=== PATIENT | male | born 1985 | race Caucasian/White ===

== ENCOUNTER 2017-09-22 17:21 | Emergency (ER) | payer SELFPAY ==
[~2017-09-22] VITALS: Ht 175.3 cm; Wt 72.0 kg
[~2017-09-22 17:21] MED LIST: SUBO8MIS SL
[2017-09-22 17:29] VITALS: BP 137/63; PULSE 90; RESP 16; TEMP 97.4; O2SAT 100
--- NOTE | 2017-09-22 17:39 | PD ---
HPI Chief Complaint: Injury Time Seen by Provider: 17:31 Travel History International Travel<30 days: No Contact w/Intl Traveler<30days: No Traveled to known affect area: No History of Present Illness HPI Patient comes in requesting a tetanus shot after having a puncture wound occurred this morning while at work. Patient states that he accidentally stepped on a nail while work that went through his shoe stabbing him and his right great toe. Patient reports cleaning this and applying a bandage and then continued his work day. Patient states his tetanus shot is not up-to-date. Patient reports minimal tenderness around site of puncture wound to palpation. He denies any radiation of the pain. Not touching it makes the pain better. PFSH Past Medical History Medical History: Denies Significant Hx Blood Disorders: No Cancer: No Cardiovascular Problems: No Diabetes: No Diminished Hearing: No Endocrine: No Gastrointestinal Disorders: No Genitourinary: No Musculoskeletal: No Neurologic: No Reproductive: No Respiratory: No Tetanus Vaccination: < 5 Years Past Surgical History Abdominal Surgery: No AICD: No Appendectomy: Yes (AT AGE OF 2) Arteriovenous Shunt: No Cardiac Surgery: No Ear Surgery: No Endocrine Surgery: No Eye Surgery: No Genitourinary Surgery: No Gynecologic Surgery: No Insulin Pump: No Neurologic Surgery: No Oral Surgery: No Pacemaker: No Thoracic Surgery: No Other Surgery: No Social History Alcohol Use: No (2 RUM AND COKES A MONTH) Tobacco Use: No Substance Use: Yes (hx of THC,ROXYCETS) Allergies-Medications (Allergen,Severity, Reaction): Coded Allergies: No Known Allergies (Verified Adverse Reaction, Unknown, 09/22/17) Reported Meds & Prescriptions Reported Meds & Active Scripts Active Cipro (Ciprofloxacin HCl) 500 Mg Tab 500 Mg PO BID 3 Days Review of Systems General / Constitutional: No: Fever Eyes: No: Visual changes HENT: No: Headaches Cardiovascular: No: Chest Pain or Discomfort Respiratory: No: Shortness of Breath Gastrointestinal: No: Abdominal Pain Genitourinary: No: Dysuria Musculoskeletal: No: Pain Skin: No Rash Neurologic: No: Weakness Psychiatric: No: Depression Endocrine: No: Polydipsia Hematologic/Lymphatic: No: Easy Bruising Physical Exam Narrative GENERAL: Well-developed, well nourished, in no acute distress, and non-ill appearing. SKIN: Tiny superficial puncture wound noted over the dorsal aspect of the right great toe. There is no drainage or erythematous. Is mildly tender to palpation. There is no crepitus. There is no foreign body noted. HEAD: Atraumatic. Normocephalic. EYES: Pupils equal and round. EOMI. No scleral icterus. No injection or drainage. ENT: No nasal bleeding or discharge. Mucous membranes pink and moist. NECK: Trachea midline. Supple. No nuclear rigidity. RESPIRATORY: No accessory muscle use. No respiratory distress. MUSCULOSKELETAL: No obvious deformities. No clubbing. No cyanosis. No edema. Full range of motion. NEUROLOGICAL: Awake and alert. No obvious cranial nerve deficits. Motor grossly within normal limits. Normal speech. PSYCHIATRIC: Appropriate mood and affect; insight and judgment normal. Data Data Last Documented VS Vital Signs Date Time Temp Pulse Resp B/P (MAP) Pulse Ox O2 Delivery O2 Flow Rate FiO2 09/22/17 17:29 97.4 90 16 137/63 (87) 100 Orders Orders Tetanus/Diphtheria Tox Adult (Tetanus/Di (09/22/17 17:45) Wound Care (09/22/17 17:37) Ed Discharge Order (09/22/17 17:40) MDM Medical Decision Making Medical Screen Exam Complete: Yes Emergency Medical Condition: Yes Differential Diagnosis Puncture wound, retained foreign body, wound check Narrative Course The patient suffered superficial puncture wound to the right great toe. There was no evidence to suggest foreign bodies. Visual and tactile exams were unremarkable without evidence of foreign body at this time. There was no evidence of neurovascular injury. The patient had a normal distal vascular exam , and had full normal motor and sensory exams. There was also no evidence or tendon injury, with normal distal full range of motions, flexion, extension, abduction, adduction and opponens. There was no evidence of local joint space involvement at this time. The patient was irrigated and cleaned by RN. The patient was given signs and symptom warnings for infection, such as increasing pain, redness, swelling, associated heat, pus or fever. The patient was warned of possible unseen foreign body and instructed to return immediately if signs or symptoms develop. The patient was given instructions for timely follow up. The patient agreed with plan of care. Patient in no obvious distress upon re-evaluation. Patient was asked if they wanted to speak to my attending, which the patient did not wish to do at this time. Any questions/concerns in reference to patient diagnosis/condition discussed and clarified prior to patient's discharge. Reinforced sheer importance of close follow up with patient's primary physician or primary care clinic. Instructed patient to return to ED immediately, if symptoms return/ worsen. Patient showed understanding of above instructions. Further instructions and recommendations were detailed in discharge paperwork. Patient ambulated without difficulty out of ED at discharge. Diagnosis Primary Impression: Puncture wound of great toe, right Qualified Codes: S91.131A - Puncture wound without foreign body of right great toe without damage to nail, initial encounter Referrals: [facility] Patient Instructions: General Instructions, Puncture Wound (ED) Additional Instructions: Follow-up with your primary care physician in 2 days for recheck. Take all medication as prescribed. Keep wound dry and clean as possible using soap and water. Do not soak or submerge wound. Return to the emergency department if symptoms get worse. Med/Other Pt SpecificInfo: Prescription(s) given Scripts Ciprofloxacin (Cipro) 500 Mg Tab 500 MG PO BID for Infection for 3 Days, #6 TAB 0 Refills Prov: Elias Tyson MD 09/22/17 Disposition: 01 DISCHARGE HOME Condition: Stable Sai Mckeon Sep 22, 2017 17:39
[2017-09-22] MEDS ORDERED: CIPR-9 PO (17:40)
[2017-09-22] MEDS ORDERED: TETANUS/DIPHTHERIA TOXOID ADULT 0.5 ML VIAL IM ONE (17:45)
== END 2017-09-22 18:04 | disposition home or self-care (01) ==
LOC: PHEFT 17:21
DX: S91.131A Puncture wound without foreign body of right great toe without damage to nail, initial encounter (principal); W45.0XXA Nail entering through skin, initial encounter; Z23 Encounter for immunization
CPT/HCPCS: 90471; 90714